=== PATIENT | male | born 1950 | race Two or more races ===

== ENCOUNTER 2025-06-29 06:00 | Day surgery (SDC) | payer OTHER | END 2025-06-29 17:00 | disposition home or self-care (01) | LOC: AMB-ENDOS 06:00 | PROVIDERS: ATTEND Colon & Rectal Surgery | DX: K63.5 Polyp of colon (principal); D12.8 Benign neoplasm of rectum; Z86.0100 Personal history of colon polyps, unspecified ==

== ENCOUNTER 2025-06-30 16:35 | Emergency (ER) | payer OTHER ==
[~2025-06-30] VITALS: Ht 170.2 cm; Wt 83.9 kg
[2025-06-30] MEDS ORDERED: PANTOPRAZOLE SODIUM 40 MG in 0.9 % SODIUM CHLORIDE 10 ML IV PUSH STA (17:40)
[2025-06-30] MEDS ORDERED: 0.9 % SODIUM CHLORIDE 1,000 ML IV SCH (17:45)
[2025-06-30 18:27] LABS: BASO % 0.2 % (0.1-1.2); EOS # 0.02 (0.04-0.54); EOS % 0.2 % (0.7-7.0); LYMPH # 0.88 (1.18-3.74); LYMPH % 9.6 % (19.3-53.1); MEAN PLATELET VOLUME 8.70 fl (9.4-12.4); MONO # 0.91 (0.24-0.82); MONO % 10.0 % (4.7-12.5); NEUT # 7.27 (1.56-6.13); NEUT % 79.6 % (34.0-71.1); RED CELL DISTRIBUTION WIDTH 11.8 % (11.6-14.4)
[2025-06-30 18:42] LABS: INR 1.11
[2025-06-30 18:51] LABS: ALT/SGPT 21.0 U/L (12-78); AST/SGOT 12.0 U/L (15-37); BILIRUBIN TOTAL 0.64 mg/dL (0.3-1.2); BUN CREA RATIO 11.0 (7.0-25.0); CREATININE SERUM 3.07 mg/dL (0.70-1.30); GFR 19.91; GLOBULINA 3.4 G/DL (2.4-3.5); GLUCOSE FASTING 115.0 mg/dL (65-100); OSMOLALITY SERUM 284.0 MOSM/KG (275-295)
== END 2025-06-30 21:05 | disposition home or self-care (01) ==
LOC: ER 16:35
PROVIDERS: General Practice
DX: K62.5 Hemorrhage of anus and rectum (principal); I10 Essential (primary) hypertension; K63.89 Other specified diseases of intestine; Z91.018 Allergy to other foods
CPT/HCPCS: 36415; 74176; 93005; 96365; 96366; 99284; J3490

== ENCOUNTER 2025-09-07 08:55 | Inpatient (IN) | payer OTHER ==
[~2025-09-07] VITALS: Ht 170.2 cm; Wt 85.7 kg
[2025-09-07] MEDS ORDERED: TOPROL XL100 M1 PO (10:29)
[2025-09-07] MEDS ORDERED: COZAAR100 MG PO (10:30)
[2025-09-07] MEDS ORDERED: NORVASC5 MG PO (10:30)
[2025-09-07] MEDS ORDERED: ATORVASTATIN CA10 MG PO (10:31)
[2025-09-07] MEDS ORDERED: KERENDIA10 MG PO (10:31)
[2025-09-07] MEDS ORDERED: NAMENDA1 EACH PO (10:33)
[2025-09-07] MEDS ORDERED: DONEPEZIL HCL OD5 MG PO (10:33)
[2025-09-07 10:39] VITALS: BP 137/82
[2025-09-16] MEDS ORDERED: CEFTRIAXONE SODIUM 2,000 MG VIAL ONE (10:22)
[2025-09-16] MEDS ORDERED: METRONIDAZOLE/SODIUM CHLORIDE 500 MG/100 ML PIGGYBACK IV ONE (10:23)
[2025-09-16] MEDS ORDERED: CHLORHEXIDINE GLUCONATE 120 ML BOTTLE TOP ONE (15:40)
[2025-09-16] MEDS ORDERED: RINGERS SOLUTION,LACTATED 1,000 ML IV SCH (18:15)
[2025-09-16] MEDS ORDERED: ONDANSETRON HCL 2 MG/ML VIAL IV PRN (18:15)
[2025-09-16] MEDS ORDERED: DEXTROSE 50 % IN WATER 0.5 G/ML DISP.SYRIN IV PRN (18:15)
[2025-09-16] MEDS ORDERED: MORPHINE SULFATE 4 MG/ML VIAL IV PRN (18:15)
[2025-09-16] MEDS ORDERED: OxyCODONE HCL 5 MG TABLET (ROXICODONE) PO PRN (18:30)
[2025-09-16 22:25] VITALS: BP 146/68; O2SAT 97
[2025-09-16 23:28] LABS: BASO % 0.1 % (0.1-1.2); EOS # 0.00 (0.04-0.54); EOS % 0.0 % (0.7-7.0); LYMPH # 0.54 (1.18-3.74); LYMPH % 4.1 % (19.3-53.1); MEAN PLATELET VOLUME 9.70 fl (9.4-12.4); MONO # 0.58 (0.24-0.82); MONO % 4.4 % (4.7-12.5); NEUT # 12.05 (1.56-6.13); NEUT % 91.2 % (34.0-71.1); RED CELL DISTRIBUTION WIDTH 10.9 % (11.6-14.4)
[2025-09-16 23:48] LABS: BUN CREA RATIO 16.0 (7.0-25.0); CREATININE SERUM 2.31 mg/dL (0.70-1.30); GFR 27.65; GLUCOSE FASTING 168.0 mg/dL (65-100); OSMOLALITY SERUM 288.0 MOSM/KG (275-295)
[2025-09-17] MEDS ORDERED: ACETAMINOPHEN 500 MG GEL..CAP PO SCH
[2025-09-17 00:30] VITALS: BP 133/65; O2SAT 97
[2025-09-17 08:46] VITALS: BP 131/60; O2SAT 97
[2025-09-17] MEDS ORDERED: ATORVASTATIN CALCIUM 10 MG TABLET PO SCH (09:00)
[2025-09-17] MEDS ORDERED: MEMANTINE HCL 5 MG TABLET PO SCH (09:00)
[2025-09-17] MEDS ORDERED: LOSARTAN POTASSIUM 100 MG TABLET PO SCH (09:00)
[2025-09-17] MEDS ORDERED: LACTOBACILLUS ACIDOPHILUS 1 CAP CAP PO SCH (09:00)
[2025-09-17] MEDS ORDERED: MAGNESIUM CHLORIDE 70 MG TABLET.DR PO SCH (09:00)
[2025-09-17] MEDS ORDERED: HYOSCYAMINE SULFATE 0.125 MG TAB.SUBL SL SCH (09:00)
[2025-09-17] MEDS ORDERED: POLYETHYLENE GLYCOL 3350 17 GM BLIST.PACK PO SCH (09:00)
[2025-09-17] MEDS ORDERED: AMLODIPINE BESYLATE 5 MG TABLET PO SCH (09:00)
[2025-09-17] MEDS ORDERED: PANTOPRAZOLE SODIUM 40 MG/VIAL VIAL IV SCH (09:00)
[2025-09-17] MEDS ORDERED: METOPROLOL SUCCINATE 100 MG TAB.SR.24H PO SCH (09:00)
[2025-09-17 15:00] VITALS: BP 148/71; O2SAT 94
[2025-09-17] MEDS ORDERED: ENOXAPARIN SODIUM 40 MG/0.4 ML SYRINGE SUBCUTANEO SCH (17:00)
[2025-09-17] MEDS ORDERED: DONEPEZIL HCL 5 MG TABLET PO SCH (17:00)
[2025-09-17 18:36] LABS: BASO % 0.1 % (0.1-1.2); EOS # 0.02 (0.04-0.54); EOS % 0.2 % (0.7-7.0); LYMPH # 1.11 (1.18-3.74); LYMPH % 10.6 % (19.3-53.1); MEAN PLATELET VOLUME 8.70 fl (9.4-12.4); MONO # 1.05 (0.24-0.82); MONO % 10.1 % (4.7-12.5); NEUT # 8.24 (1.56-6.13); NEUT % 78.9 % (34.0-71.1); RED CELL DISTRIBUTION WIDTH 11.3 % (11.6-14.4)
[2025-09-17 18:57] LABS: BUN CREA RATIO 16.0 (7.0-25.0); CREATININE SERUM 2.07 mg/dL (0.70-1.30); GFR 31.38; GLUCOSE FASTING 127.0 mg/dL (65-100); OSMOLALITY SERUM 287.0 MOSM/KG (275-295)
[2025-09-18 01:47] VITALS: BP 173/73; O2SAT 95
[2025-09-18 07:57] LABS: BASO % 0.1 % (0.1-1.2); EOS # 0.01 (0.04-0.54); EOS % 0.1 % (0.7-7.0); LYMPH # 0.81 (1.18-3.74); LYMPH % 7.6 % (19.3-53.1); MEAN PLATELET VOLUME 9.70 fl (9.4-12.4); MONO # 0.95 (0.24-0.82); MONO % 8.9 % (4.7-12.5); NEUT # 8.87 (1.56-6.13); NEUT % 83.0 % (34.0-71.1); RED CELL DISTRIBUTION WIDTH 11.3 % (11.6-14.4)
[2025-09-18 08:00] VITALS: BP 188/82; O2SAT 97
[2025-09-18 08:46] LABS: BUN CREA RATIO 16.0 (7.0-25.0); CREATININE SERUM 1.82 mg/dL (0.70-1.30); GFR 36.4; GLUCOSE FASTING 128.0 mg/dL (65-100); OSMOLALITY SERUM 284.0 MOSM/KG (275-295)
[2025-09-18] MEDS ORDERED: MAGNESIUM SULFATE 50% 1,000 MG/2 ML VIAL IV ONE (18:15)
[2025-09-19 00:30] VITALS: BP 167/71; O2SAT 97
[2025-09-19] MEDS ORDERED: NAPH,MB-DB/K PH,MBDB 1 PKT PACKET PO SCH (09:00)
[2025-09-19] MEDS ORDERED: PATIENTS OWN MEDICATION (MEDICAMENTO EN PISO) PO SCH (09:00)
[2025-09-19 11:40] VITALS: BP 191/76; O2SAT 98
[2025-09-19] MEDS ORDERED: ENALAPRILAT DIHYDRATE 1.25 MG/ML VIAL IV PRN (14:30)
[2025-09-19] MEDS ORDERED: LINEZOLID IN DEXTROSE 5% 300 ML IV SCH (17:00)
[2025-09-19 17:03] VITALS: BP 148/75; O2SAT 99
[2025-09-19] MEDS ORDERED: PIPERACILLIN/TAZOBACTAM SODIUM 2.25 GM in DEXTROSE 5 % IN WATER 50 ML IV SCH (18:00)
[2025-09-20] VITALS: BP 170/82; O2SAT 98
[2025-09-20] MEDS ORDERED: OxyCODONE HCL 5 MG TABLET (ROXICODONE) PO STA (05:45)
[2025-09-20] MEDS ORDERED: MORPHINE SULFATE 2 MG/ML SYRINGE IV PRN (05:46)
[2025-09-20] MEDS ORDERED: DIATRIZOATE MEGLUMINE, SODIUM 30 ML BOTTLE PO STA (06:13)
[2025-09-20 06:46] LABS: BASO % 0.1 % (0.1-1.2); EOS # 0.04 (0.04-0.54); EOS % 0.3 % (0.7-7.0); LYMPH # 0.87 (1.18-3.74); LYMPH % 7.4 % (19.3-53.1); MEAN PLATELET VOLUME 9.20 fl (9.4-12.4); MONO # 1.24 (0.24-0.82); MONO % 10.5 % (4.7-12.5); NEUT # 9.57 (1.56-6.13); NEUT % 81.4 % (34.0-71.1); RED CELL DISTRIBUTION WIDTH 11.1 % (11.6-14.4)
[2025-09-20 07:30] LABS: ALT/SGPT 29.0 U/L (12-78); AST/SGOT 34.0 U/L (15-37); BILIRUBIN TOTAL 0.84 mg/dL (0.3-1.2); BILIRUBIN,CONJUGATED 0.24 mg/dL (0.0-0.2); BUN CREA RATIO 15.0 (7.0-25.0); CREATININE SERUM 1.76 mg/dL (0.70-1.30); GFR 37.84; GLUCOSE FASTING 152.0 mg/dL (65-100); OSMOLALITY SERUM 278.0 MOSM/KG (275-295)
[2025-09-20 08:00] VITALS: BP 107/70; O2SAT 98
[2025-09-20 17:04] VITALS: BP 160/76; O2SAT 99
[2025-09-21 00:54] VITALS: BP 147/79; O2SAT 100
[2025-09-21 08:00] VITALS: BP 173/84; O2SAT 99
[2025-09-21] MEDS ORDERED: POTASSIUM PHOS,M-BASIC-D-BASIC 9 MM in 0.9 % SODIUM CHLORIDE 250 ML IV ONE (11:00)
[2025-09-21 16:00] VITALS: BP 132/75; O2SAT 98
[2025-09-21] MEDS ORDERED: DEXTROSE 5 %-0.45 % SOD CHLORD 1,000 ML IV SCH (16:30)
[2025-09-21] MEDS ORDERED: MUPIROCIN 15 GM OINT..GM TUBE NASAL SCH (17:00)
[2025-09-21] MEDS ORDERED: POLYETHYLENE GLYCOL 3350 17 GM BLIST.PACK PO SCH (17:00)
[2025-09-22 01:12] VITALS: BP 143/68; O2SAT 98
[2025-09-22 07:47] LABS: BASO % 0.4 % (0.1-1.2); EOS # 0.13 (0.04-0.54); EOS % 1.6 % (0.7-7.0); LYMPH # 0.93 (1.18-3.74); LYMPH % 11.3 % (19.3-53.1); MEAN PLATELET VOLUME 10.80 fl (9.4-12.4); MONO # 0.92 (0.24-0.82); MONO % 11.2 % (4.7-12.5); NEUT # 6.19 (1.56-6.13); NEUT % 75.1 % (34.0-71.1); RED CELL DISTRIBUTION WIDTH 10.9 % (11.6-14.4)
[2025-09-22 08:06] VITALS: BP 165/82; O2SAT 98
[2025-09-22 08:13] LABS: BUN CREA RATIO 15.0 (7.0-25.0); CREATININE SERUM 1.93 mg/dL (0.70-1.30); GFR 34.02; GLUCOSE FASTING 154.0 mg/dL (65-100); OSMOLALITY SERUM 286.0 MOSM/KG (275-295)
[2025-09-22] MEDS ORDERED: MUPIROCIN 15 GM OINT..GM TUBE NASAL SCH (09:00)
[2025-09-22] MEDS ORDERED: CHLORHEXIDINE GLUCONATE 120 ML BOTTLE TOP SCH (09:00)
[2025-09-22] MEDS ORDERED: SOD FERRIC GLUC COMPLX/SUCROSE 62.5 MG in 0.9 % SODIUM CHLORIDE 50 ML IV SCH (12:00)
[2025-09-22 17:35] VITALS: BP 173/66; O2SAT 98
[2025-09-22 23:58] VITALS: BP 145/76; O2SAT 99
[2025-09-23 08:39] VITALS: BP 157/74; O2SAT 97
[2025-09-23] MEDS ORDERED: POTASSIUM PHOS,M-BASIC-D-BASIC 15 MM in 0.9 % SODIUM CHLORIDE 250 ML IV ONE (10:00)
[2025-09-23] MEDS ORDERED: NAPH,MB-DB/K PH,MBDB 1 PKT PACKET PO STA (10:09)
== END 2025-09-23 21:04 | disposition home or self-care (01) | DRG 336 ==
LOC: SURH 09-16 08:45 → O/R 09-16 09:00 → SURH 09-16 09:00
PROVIDERS: ADMIT Colon & Rectal Surgery; ATTEND Colon & Rectal Surgery
PROC: 0DNW0ZZ Release Peritoneum, Open Approach (ICD-10-PCS; 2025-09-16)
PROC: 0D5 Gastrointestinal System, Destruction (ICD-10-PCS; 2025-09-16)
PROC: 0DJD8ZZ Inspection of Lower Intestinal Tract, Via Natural or Artificial Opening Endoscopic (ICD-10-PCS; 2025-09-16)
PROC: 0DN80ZZ Release Small Intestine, Open Approach (ICD-10-PCS; principal; 2025-09-16 08:45)
PROC: BW21ZZZ Computerized Tomography (CT Scan) of Abdomen and Pelvis (ICD-10-PCS; 2025-09-20)
DX: K63.5 Polyp of colon (principal); K56.7 Ileus, unspecified; L03.311 Cellulitis of abdominal wall; N28.9 Disorder of kidney and ureter, unspecified; R10.32 Left lower quadrant pain; R59.0 Localized enlarged lymph nodes; K66.0 Peritoneal adhesions (postprocedural) (postinfection); Z87.891 Personal history of nicotine dependence; Z53.31 Laparoscopic surgical procedure converted to open procedure